=== PATIENT | male | born 1985 | race Caucasian/White ===

== ENCOUNTER 2018-05-22 18:31 | Emergency (ER) | payer SELFPAY ==
[2018-05-22] MEDS ORDERED: HYDROmorphone 0.5 MG/0.5 ML SYRINGE IVPUSH STA (19:20)
[2018-05-22] MEDS ORDERED: Ondansetron 4 MG/2 ML SDV IVPUSH ONE (19:21)
--- NOTE | 2018-05-22 19:28 | EDM.PDOC ---
ED HPI GENERAL MEDICAL PROBLEM - General Chief Complaint: Genitourinary Problem Stated Complaint: GROIN PAIN Time Seen by Provider: 05/22/18 19:11 Source of Information: Reports: Patient History Limitations: Reports: No Limitations - History of Present Illness INITIAL COMMENTS - FREE TEXT/NARRATIVE: The patient states that he developed sudden onset right testicular pain when he coughed, around 16:30, while walking. He states that he had just gone to the bathroom a few minutes earlier. He denies having had any urinary symptoms at that time. No recent fever or illness. No prior similar symptoms. The patient's last oral solid food was around noon today. The patient does not have a PCP. Right Groin Pain Score (Numeric/FACES): 7 - Related Data Allergies Allergy/AdvReac Type Severity Reaction Status Date / Time No Known Allergies Allergy Verified 05/22/18 19:01 Home Meds: Home Meds . [No Known Home Meds] 05/22/18 [History] Past Medical History Musculoskeletal History: Reports: Fracture (T12-L3 spinous process fractures) Social & Family History - Tobacco Use Smoking Status *Q: Current Every Day Smoker Years of Tobacco use: 18 Packs/Tins Daily: 1 Packs/Tins Daily Comment: Down from 2 ppd - Caffeine Use Caffeine Use: Reports: Soda - Alcohol Use Alcohol Use History: Yes Alcohol Use Frequency: Rarely - Recreational Drug Use Recreational Drug Use: Yes Drug Use in Last 12 Months: No Recreational Drug Type: Reports: Other (see below) (Hydrocodone abuse from 2002 to 2012) - Living Situation & Occupation Living situation: Reports: Single, with Significant Other (Girlfriend), with Family (3 daughters) Occupation: Employed (high lift driver) ED ROS GENERAL - Review of Systems Review Of Systems: ROS reveals no pertinent complaints other than HPI. ED EXAM, RENAL/ - Physical Exam Exam: See Below Exam Limited By: No Limitations General Appearance: Alert, WD/WN, Moderate Distress (Considerable pain) Eye Exam: Bilateral Eye: EOMI, Normal Inspection Ears: Normal External Exam, Hearing Grossly Normal Nose: Normal Inspection Throat/Mouth: Normal Inspection, Normal Lips, Normal Voice, No Airway Compromise Head: Atraumatic, Normocephalic Neck: Normal Inspection, Full Range of Motion Respiratory/Chest: No Respiratory Distress, Lungs Clear, Normal Breath Sounds, No Accessory Muscle Use Cardiovascular: Normal Peripheral Pulses, No Edema, No Gallop, No JVD, No Murmur , No Rub, Tachycardia (regular) GI/Abdominal: Normal Bowel Sounds, Soft, Non-Tender (but palpation anywhere on abdomen, particularly of the RLQ, induces right testicular pain), No Organomegaly, No Distention, No Abnormal Bruit, No Mass (Male) Exam: No Hernia, Cremasteric Reflex (on right), Testicular Tenderness (R). No: Scrotal Swelling, Scrotum Tenderness (L), Scrotum Tenderness (R), Suprapubic Fullness, Testicular Mass (right or left), Testicular Tenderness (L) , Urethral Discharge Rectal (Males) Exam: Deferred Back Exam: Normal Inspection, Full Range of Motion. No: CVA Tenderness (L), CVA Tenderness (R) Extremities: Normal Inspection, Normal Range of Motion, No Pedal Edema, Normal Capillary Refill Neurological: Alert, Oriented, Normal Cognition, No Motor/Sensory Deficits Psychiatric: Normal Affect Skin Exam: Warm, Dry, Intact, Normal Color, No Rash Course - Vital Signs Last Recorded V/S: Last Vital Signs Temp 37.1 C 05/22/18 18:58 Pulse 114 H 05/22/18 18:58 Resp 16 05/22/18 18:58 BP 147/88 H 05/22/18 18:58 Pulse Ox 100 05/22/18 18:58 - Orders/Labs/Meds Orders: Active Orders 24 hr Category Date Time Status GC/CHLAMYDIA BY PCR [[facility]LE[facility]] Stat Lab 05/22/18 22:24 Received UA W/MICROSCOPIC [URIN] Stat Lab 05/22/18 22:24 Ordered Labs: Laboratory Tests 05/22/18 05/22/18 05/22/18 Range/Units 19:35 19:35 22:24 WBC 12.46 H (4.23-9.07) K/mm3 RBC 5.71 (4.63-6.08) M/mm3 Hgb 16.9 (13.7-17.5) gm/L Hct 48.8 (40.1-51.0) % MCV 85.5 (79.0-92.2) fl MCH 29.6 (25.7-32.2) pg MCHC 34.6 (32.2-35.5) g/dl RDW Std Deviation 43.0 (35.1-43.9) fL Plt Count 290 (163-337) K/mm3 MPV 9.8 (9.4-12.3) fl Neutrophils % (Manual) 64 H (40-60) % Band Neutrophils % 0 (0-10) % Lymphocytes % (Manual) 28 (20-40) % Atypical Lymphs % 0 % Monocytes % (Manual) 5 (2-10) % Eosinophils % (Manual) 1 (0.8-7.0) % Basophils % (Manual) 2 H (0.2-1.2) Toxic Granulation 2+ moderate Platelet Estimate Adequate Plt Morphology Comment Normal RBC Morph Comment Normal Sodium 141 (136-145) mEq/L Potassium 3.9 (3.5-5.1) mEq/L Chloride 105 (98-107) mEq/L Carbon Dioxide 24 (21-32) mEq/L Anion Gap 15.9 H (5-15) BUN 13 (7-18) mg/dL Creatinine 1.1 (0.7-1.3) mg/dL Est Cr Clr Drug Dosing 116.29 mL/min Estimated GFR (MDRD) > 60 (>60) mL/min BUN/Creatinine Ratio 11.8 L (14-18) Glucose 96 (74-106) mg/dL Calcium 8.6 (8.5-10.1) mg/dL Total Bilirubin 0.3 (0.2-1.0) mg/dL AST 19 (15-37) U/L ALT 35 (16-63) U/L Alkaline Phosphatase 76 (46-116) U/L Total Protein 7.4 (6.4-8.2) g/dl Albumin 4.2 (3.4-5.0) g/dl Globulin 3.2 gm/dL Albumin/Globulin Ratio 1.3 (1-2) Urine Color Yellow (Yellow) Urine Appearance Clear (Clear) Urine pH 7.0 (5.0-8.0) Ur Specific [place] 1.020 (1.005-1.030) Urine Protein Negative (Negative) Urine Glucose (UA) Negative (Negative) Urine Ketones Negative (Negative) Urine Occult Blood Negative (Negative) Urine Nitrite Negative (Negative) Urine Bilirubin Negative (Negative) Urine Urobilinogen 0.2 (0.2-1.0) Ur Leukocyte Esterase Negative (Negative) Urine RBC 0-5 (0-5) /hpf Urine WBC 0-5 (0-5) /hpf Ur Epithelial Cells Not seen (0-5) /hpf Urine Bacteria Not seen (FEW) /hpf Urine Mucus Moderate H (FEW) /hpf Meds: Medications Discontinued Medications Generic Name Dose Route Start Last Admin Trade Name Sd PRN Reason Stop Dose Admin Acetaminophen 650 mg 05/22/18 21:13 05/22/18 21:22 Tylenol PO 05/22/18 21:14 650 mg NOW ONE Administration Acetaminophen 325 mg 05/22/18 21:13 05/22/18 21:23 Tylenol PO 05/22/18 21:14 325 mg NOW ONE Administration Hydromorphone HCl 1 mg 05/22/18 19:20 05/22/18 19:41 Dilaudid IVPUSH 05/22/18 19:21 Not Given ONETIME STA Sodium Chloride 1,000 mls @ 100 mls/hr 05/22/18 19:30 05/22/18 21:27 Normal Saline IV 999 mls/hr ASDIRECTED ANA Infusion Sodium Chloride 1,000 mls @ 999 mls/hr 05/22/18 21:15 Normal Saline IV 05/22/18 22:15 ONETIME ONE Ketorolac Tromethamine 30 mg 05/22/18 19:41 05/22/18 19:45 Toradol IVPUSH 05/22/18 19:42 30 mg ONETIME STA Administration Ondansetron HCl 4 mg 05/22/18 19:21 05/22/18 19:41 Zofran IVPUSH 05/22/18 19:22 Not Given ONETIME ONE - Re-Assessments/Exams Free Text/Narrative Re-Assessment/Exam: 05/22/18 19:32 With the sudden onset right testicular pain and no discernible hernia, I'm concerned about testicular torsion, therefore I have ordered an ultrasound of the right testicle. I also ordered some preop labs, should it come to that, along with a urinalysis and urine GC evaluation. I've ordered Dilaudid, Zofran, and IV fluid. We will keep the patient NPO. 05/22/18 19:42 The patient informed me that he had a prior addiction to [place] from , and he does not want opioids. I've canceled the order for Dilaudid and ordered Toradol instead. The patient was reminded that he cannot take anything by mouth, in case this turns out be a surgical situation. 05/22/18 20:35 Testicular ultrasound is read by Dr. Chavira as: 1. Small 7 mm epididymal cyst. 2. Testicular ultrasound is otherwise unremarkable. 05/22/18 21:14 Delay in disposition, as the patient has not yet been able to provide a urine sample. 05/23/18 00:38 Notified that the patient could not wait for the last test result, the gonorrhea /chlamydia by PCR, even though he was told that the results would be available within 5 minutes. The patient signed AMA. Departure - Departure Time of Disposition: 00:39 Disposition: Against Medical Advice 07 Condition: Good Clinical Impression: Right testicular pain - Discharge Information *PRESCRIPTION DRUG MONITORING PROGRAM REVIEWED*: Not Applicable *COPY OF PRESCRIPTION DRUG MONITORING REPORT IN PATIENT CYNTHIA: Not Applicable Referrals: PCP,Not In Area [Primary Care Provider] - Forms: ED Department Discharge - My Orders Last 24 Hours: My Active Orders 05/22/18 22:24 GC/CHLAMYDIA BY PCR [[facility]LE[facility]] Stat UA W/MICROSCOPIC [URIN] Stat - Assessment/Plan Last 24 Hours: My Active Orders 05/22/18 22:24 GC/CHLAMYDIA BY PCR [MOLEC] Stat UA W/MICROSCOPIC [URIN] Stat
[2018-05-22] MEDS ORDERED: Sodium Chloride 0.9% 1,000 ML IV SCH (19:30)
[2018-05-22] MEDS ORDERED: Ketorolac 30 MG/ML SDV IVPUSH STA (19:41)
--- NOTE | 2018-05-22 20:28 | US ---
Testicular ultrasound: Multiple real-time images of the testicles were obtained. Testicles have a homogeneous ultrasound appearance. No intratesticular abnormality is appreciated. Both arterial and venous blood flow are seen on Doppler evaluation. Small epididymal cyst is noted on the right side measuring 7 mm. No hydrocele is seen. No additional abnormality is appreciated. Measurements: Right testicle: 5.0 x 3.0 x 3.7 cm Left testicle: 4.9 x 2.6 x 3.4 cm Impression: 1. Small 7 mm epididymal cyst. 2. Testicular ultrasound is otherwise unremarkable. Diagnostic code #2
[2018-05-22] MEDS ORDERED: Acetaminophen 325 MG Tab PO ONE ×2 (21:13)
[2018-05-22] MEDS ORDERED: Sodium Chloride 0.9% 1,000 ML IV ONE (21:15)
[2018-05-23 00:30] LABS: C. TRACHOMATIS BY PCR NOT DETECTED; N. GONORRHOEAE BY PCR NOT DETECTED
== END 2018-05-23 00:35 | disposition left against medical advice (07) ==
LOC: JD.ED 18:31
DX: N50.811 Right testicular pain (principal); F17.210 Nicotine dependence, cigarettes, uncomplicated
CPT/HCPCS: 36415; 76870; 80053; 81001; 85007; 85027; 87491; 87591; 93975; 96361; 96374; 99284; A9270; J1885; J7040